=== PATIENT | female | born 1950 | race Caucasian/White ===

== ENCOUNTER 2018-02-01 06:41 | Day surgery (SDC) | payer MEDICARE ==
[2018-02-01] MEDS ORDERED: MIDAZOLAM 2 MG/2 ML INJ ONE (07:01)
[2018-02-01] MEDS ORDERED: FENTANYL CITRATE INJ/PF 100 MCG/2 ML AMPUL ONE (07:01)
[2018-02-01] MEDS: TETRACAINE HCL 0.5% OPH SOLN 0.6 ML DROPERETTE OD PRN ×2 (07:03→07:35)
[2018-02-01] MEDS: TROPICAMIDE 1% OPH SOLN 3 ML OD PRN ×3 (07:04→07:35)
[2018-02-01] MEDS: CYCLOPENTOLATE 0.2%/PHENYLEPHRINE 1% OPH SOLN 2 ML OD PRN ×3 (07:04→07:35)
[2018-02-01] MEDS: BESIFLOXACIN HCL 0.6% OPH SUSP 5 ML BOTTLE OD PRN ×4 (07:04→08:24)
[2018-02-01] MEDS: KETOROLAC TROMETHAMINE 0.45% 4 DROP/0.4 ML DROPERETTE OD PRN ×2 (07:05→09:00)
[2018-02-01] MEDS: LIDOCAINE 4% INJ/PF (40 MG/ML) 5 ML AMPUL OD PRN ×2 (08:03)
[2018-02-01] MEDS: BUPIVACAINE HCL 0.75% INJ/PF (7.5 MG/1 ML) 10 ML SDV OD PRN ×2 (08:03)
[2018-02-01] MEDS: EPINEPHRINE INJ/PF 1 MG/1 ML AMPULE ONE ×2 (08:12)
[2018-02-01] MEDS: LIDOCAINE 1% INJ-PF (10 MG/ML) 30 ML SDV ONE ×2 (08:15)
[2018-02-01] MEDS: CHONDR SU A NA/HYALUR INTRAOC KIT (SURGICARE) ONE ×2 (08:17)
--- NOTE | 2018-02-01 10:06 | [facility] OPERATIVE REPORT E ---
[facility] NAME: CONSUELO DOAN AGE: 67Y DATE OF SURGERY: 02/01/2018 ROOM: [facility] [place] Operative Report PREOPERATIVE DIAGNOSIS: CATARACT, RIGHT EYE. POSTOPERATIVE DIAGNOSIS: CATARACT, RIGHT EYE. PROCEDURE PERFORMED: PHACOEMULSIFICATION WITH POSTERIOR CHAMBER INTRAOCULAR LENS, RIGHT EYE. SURGEON: SALMA ESPOSITO MD ANESTHESIA: TOPICAL WITH MAC. INDICATIONS FOR SURGERY: Difficulty reading license plates. Best corrected visual acuity 20/50. PROCEDURE: The patient was brought to the Operating Room and placed on the operative table. Following tetracaine drops, topical anesthesia was administered. This consisted of instrument wipe pledgets soaked in a solution of 4% Xylocaine mixed with 0.75% Marcaine in a 1:2 ratio. A 2 x 1 cm pledget was placed in the superior fornix. A 1 x 1 cm pledget was placed in the inferior fornix. The eye was patched shut for 5 minutes. The patch was removed. The eye was sterilely prepped and draped in the usual manner. Lid speculum was placed in the eye. The pledgets were removed. 4-0 black silk sutures were placed around the superior and the inferior rectus muscles to be used as traction. A conjunctival peritomy was made at the 10 o'clock position. Hemostasis was obtained with bipolar cautery. A posterior limbal groove was created using a crescent knife and dissected anteriorly towards the cornea. A sharp point blade was used to create a paracentesis site at the 2 o'clock position. A 2.4 mm keratome was used to enter the anterior chamber through the groove. Viscoelastic was injected into the anterior chamber. An anterior capsulotomy was performed using Utrata forceps in a capsulorrhexis fashion. Hydrodissection and hydrodelineation were performed. Phacoemulsification was performed in txbrqs-iia-tgrhnrm technique. A total of 54 seconds phaco time was used. Following this, the I/A unit was used to remove residual cortex. Viscoelastic was injected into the capsular bag. Intraocular lens model [id number], 18.5 diopters, serial number [id number] was placed in the capsular bag. The I/A unit was used to remove residual viscoelastic. The wound was seen to be watertight under high and low pressure, and no sutures were placed. The intraocular lens was well centered. The pressure was adjusted in the eye to normal pressure. The 4-0 black silk sutures and lid speculum were removed. The eye was shielded after Besivance drops were placed. The patient tolerated the procedure well and was sent to the Recovery Room in good condition. DICTATING PHYSICIAN: SALMA ESPOSITO M.D. DICTATING PHYSICIAN: SALMA ESPOSITO M.D. [id number] PHY#: [id number] ID: [id number] JOB#: [id number] ACCT: [id number] cc:SALMA ESPOSITO M.D. >
--- NOTE | 2018-02-01 10:06 | [facility] DISCHARGE SUMMARY E ---
[facility] Discharge Summary NAME: CONSUELO DOAN AGE: 67Y ADMITTED: 02/01/2018 DISCHARGED: 02/01/2018 FINAL DIAGNOSIS: CATARACT, RIGHT EYE. HOSPITAL COURSE: The patient is a 67-year-old lady who underwent uneventful cataract extraction with intraocular lens implant, right eye on 02/01/2018. She will be discharged to home. She is instructed to resume preoperative medications, take Tylenol as needed for discomfort, to keep her eye shielded, to use Besivance, Durezol and Ilevro at 3 p.m. and 8 p.m., and to follow up in my office in 1 day. DICTATING PHYSICIAN: SALMA ESPOSITO M.D. [id number] PHY#: [id number] ID: [id number] JOB#: [id number] ACCT: [id number] cc:SALMA ESPOSITO M.D. >
== END 2018-02-01 09:15 | disposition home or self-care (01) ==
LOC: SC 06:41
PROVIDERS: ATTEND Ophthalmology
DX: H25.811 Combined forms of age-related cataract, right eye (principal); I10 Essential (primary) hypertension; Z79.899 Other long term (current) drug therapy
CPT/HCPCS: 66984; 82962; V2632; J2250; J3490 ×4; A9270; J0171; J3010; 142

== ENCOUNTER 2018-02-22 08:59 | Day surgery (SDC) | payer MEDICARE ==
[~2018-02-22 08:59] MED LIST: KETOROLAC TROMETHAMINE 0.45% 4 DROP/0.4 ML DROPERETTE OS PRN
[2018-02-22] MEDS ORDERED: LIDOCAINE 1% INJ-PF (10 MG/ML) 30 ML SDV ONE (10:01)
[2018-02-22] MEDS: CYCLOPENTOLATE 0.2%/PHENYLEPHRINE 1% OPH SOLN 2 ML OS PRN ×3 (10:18→10:42)
[2018-02-22] MEDS: BESIFLOXACIN HCL 0.6% OPH SUSP 5 ML BOTTLE OS PRN ×4 (10:18→11:20)
[2018-02-22] MEDS: TETRACAINE HCL 0.5% OPH SOLN 0.6 ML DROPERETTE OS PRN ×2 (10:18→10:43)
[2018-02-22] MEDS: TROPICAMIDE 1% OPH SOLN 3 ML OS PRN ×3 (10:18→10:42)
[2018-02-22] MEDS: BUPIVACAINE HCL 0.75% INJ/PF (7.5 MG/1 ML) 10 ML SDV OS PRN ×2 (10:59)
[2018-02-22] MEDS: LIDOCAINE 4% INJ/PF (40 MG/ML) 5 ML AMPUL OS PRN ×2 (10:59)
[2018-02-22] MEDS: CHONDR SU A NA/HYALUR INTRAOC KIT (SURGICARE) ONE ×2 (11:08)
[2018-02-22] MEDS: EPINEPHRINE INJ/PF 1 MG/1 ML AMPULE ONE ×2 (11:08)
--- NOTE | 2018-02-22 13:16 | DISCHARGE SUMMARY E ---
Discharge Summary NAME: CONSUELO DOAN : 1950 AGE: 67Y ADMITTED: 02/22/2018 DISCHARGED: 02/22/2018 HOSPITAL COURSE: The patient is a 67-year-old lady who underwent uneventful cataract extraction with intraocular lens implant left eye on 02/22/2018. She will be discharged to home. She is instructed to resume preoperative medications, take Tylenol as needed for discomfort, to keep her eye shielded, to use Besivance, Ilevro, and Durezol at 3:00 p.m. and 8:00 p.m., to follow up in my office in 1 day. DICTATING PHYSICIAN: SALMA ESPOSITO M.D. [id number] PHY#: [id number] ID: [id number] JOB#: [id number] ACCT: [id number] cc:SALMA ESPOSITO M.D. >
--- NOTE | 2018-02-22 13:16 | [facility] OPERATIVE REPORT E ---
[facility] Operative Report NAME: CONSUELO DOAN AGE: 67Y DATE OF SURGERY: 02/22/2018 ROOM: PREOPERATIVE DIAGNOSIS: Cataract, left eye. POSTOPERATIVE DIAGNOSIS: Cataract, left eye. OPERATION: Phacoemulsification with posterior chamber intraocular lens implant, left eye. SURGEON: SALMA ESPOSITO M.D. ANESTHESIA: Topical with MAC. INDICATIONS FOR SURGERY: Difficulty reading small print. Best corrected visual acuity 20/40. PROCEDURE: The patient was brought to the Operating Room and placed on the operative table. Following tetracaine drops, topical anesthesia was administered. This consisted of instrument wipe pledgets soaked in a solution of 4% Xylocaine mixed with 0.75% Marcaine in a 1:2 ratio. A 2 x 1 cm pledget was placed in the superior fornix. A 1 x 1 cm pledget was placed in the inferior fornix. The eye was patched shut for 5 minutes. The patch was removed. The eye was sterilely prepped and draped in the usual manner. Lid speculum was placed in the eye. The pledgets were removed. 4-0 black silk sutures were placed around the superior and the inferior rectus muscles to be used as traction. A conjunctival peritomy was made at the 10 o'clock position. Hemostasis was obtained with bipolar cautery. A posterior limbal groove was created using a crescent knife and dissected anteriorly towards the cornea. A sharp point blade was used to create a paracentesis site at the 2 o'clock position. A 2.4 mm keratome was used to enter the anterior chamber through the groove. Viscoelastic was injected into the anterior chamber. An anterior capsulotomy was performed using Utrata forceps in a capsulorrhexis fashion. Hydrodissection and hydrodelineation were performed. Phacoemulsification was performed in rwbsoh-xhd-ixacxae technique. A total CDE of 6.38 seconds phaco time was used. Following this, the I/A unit was used to remove residual cortex. Viscoelastic was injected into the capsular bag. Intraocular lens model II117PD, 19.5 diopters, serial number [id number] was placed in the capsular bag. The I/A unit was used to remove residual viscoelastic. The wound was seen to be watertight under high and low pressure, and no sutures were placed. The intraocular lens was well centered. The pressure was adjusted in the eye to normal pressure. The 4-0 black silk sutures and lid speculum were removed. The eye was shielded after Besivance drops were placed. The patient tolerated the procedure well and was sent to the Recovery Room in good condition. DICTATING PHYSICIAN: SALMA ESPOSITO M.D. DICTATING PHYSICIAN: SALMA ESPOSITO M.D. [id number] PHY#: [id number] ID: [id number] JOB#: [id number] ACCT: [id number] cc:SALMA ESPOSITO M.D. >
== END 2018-02-22 12:23 | disposition home or self-care (01) ==
LOC: SC 08:59
PROVIDERS: ATTEND Ophthalmology
DX: H25.812 Combined forms of age-related cataract, left eye (principal); Z96.1 Presence of intraocular lens; I10 Essential (primary) hypertension; Z79.899 Other long term (current) drug therapy; E11.9 Type 2 diabetes mellitus without complications; Z79.84 Long term (current) use of oral hypoglycemic drugs; E07.9 Disorder of thyroid, unspecified; Z88.2 Allergy status to sulfonamides
CPT/HCPCS: 66984; 82962; V2632; J3490 ×4; A9270; J0171; 142

== ENCOUNTER → 2020-01-31 | Outpatient (CLI) | payer MEDICARE ==
[2020-01-31 11:59] LABS: ABSOLUTE EOSINOPHILS # (AUTO) 0.1 10^3/uL (0.0-0.6); ABSOLUTE LYMPHOCYTES (AUTO) 0.9 10^3/uL (0.5-4.7); ABSOLUTE MONOCYTES (AUTO) 0.6 10^3/uL (0.1-1.4); ABSOLUTE NEUT (AUTO) 5.1 10^3/uL (1.7-8.2); BASOPHILS % (AUTO) 0.4 % (0-2); EOSINOPHILS % (AUTO) 1.5 % (0-6); HEMATOCRIT 33.5 % (36.0-47.0); HEMOGLOBIN 11.2 g/dL (12.0-15.5); LYMPHOCYTES % (AUTO) 13.3 % (13-45); MEAN CORPUSCULAR HEMOGLOBIN 28.4 pg (27.0-33.4); MEAN CORPUSCULAR HGB CONC 33.3 g/dL (32.0-36.0); MEAN CORPUSCULAR VOLUME 85 fl (80-97); MONOCYTES % (AUTO) 9.6 % (3-13); PLATELET COUNT 252 10^3/uL (150-450); RED BLOOD COUNT 3.93 10^6/uL (3.72-5.28); RED CELL DISTRIBUTION WIDTH 13.4 % (11.5-14.0); SEGMENTED NEUTROPHILS % (AUTO) 75.2 % (42-78); TOTAL CELLS COUNTED % (AUTO) 100 %; WHITE BLOOD COUNT 6.8 10^3/uL (4.0-10.5)
[2020-01-31 12:24] LABS: ALBUMIN 3.9 g/dL (3.5-5.0); ALKALINE PHOSPHATASE 61 U/L (38-126); ANION GAP 11 (5-19); ASPARTATE AMINO TRANSFERASE 18 U/L (14-36); BILIRUBIN,TOTAL 0.5 mg/dL (0.2-1.3); BLOOD UREA NITROGEN 21 mg/dL (7-20); CARBON DIOXIDE 21 mmol/L (22-30); CHLORIDE 103 mmol/L (98-107); CHOLESTEROL 136.37 mg/dL (0-200); GLUCOSE 123 mg/dL (75-110); POTASSIUM 4.4 mmol/L (3.6-5.0); TOTAL PROTEIN 6.8 g/dL (6.3-8.2); TRIGLYCERIDES 178 mg/dL (<150)
[2020-01-31 12:35] LABS: DIRECT LDL 66 mg/dL (<100)
[2020-01-31 12:39] LABS: VLDL CHOLESTEROL 35.6 mg/dL (10-31)
== END ==
LOC: GHH 10:46
PROVIDERS: ATTEND Internal Medicine
DX: Z48.3 Aftercare following surgery for neoplasm (principal); D33.3 Benign neoplasm of cranial nerves; E11.9 Type 2 diabetes mellitus without complications; H91.91 Unspecified hearing loss, right ear; E07.9 Disorder of thyroid, unspecified
CPT/HCPCS: 80053; 80061; 83036; 84436; 84443; 85025